=== PATIENT | male | born 1965 | race African-American/Black ===

== ENCOUNTER 2017-08-22 03:12 | Inpatient (IN) ==
[2017-08-22] MEDS ORDERED: NITROGLYCERIN 2% OINT 1 INCH/GM PACK TOP STA (04:10)
[2017-08-22] MEDS ORDERED: ALUM/MAG/SIMETH/LIDO VISC 1:1 30 ML BOTTLE PO STA (04:10)
[2017-08-22] MEDS ORDERED: ONDANSETRON 4 MG/2 ML VIAL IV STA (04:10)
[2017-08-22] MEDS ORDERED: ASPIRIN 325 MG TABLET PO STA (04:10)
[2017-08-22] MEDS ORDERED: MORPHINE 2 MG/1 ML SYRINGE IV STA (04:10)
[2017-08-22] MEDS ORDERED: FUROSEMIDE 40 MG/4 ML VIAL IV STA (04:10)
[2017-08-22] MEDS ORDERED: NITROGLYCERIN 2% OINT 1 INCH/GM PACK TOP ONE (04:25)
[2017-08-22] MEDS ORDERED: ASPIRIN 325 MG TABLET ONE (04:26)
[2017-08-22] MEDS ORDERED: FUROSEMIDE 40 MG/4 ML VIAL ONE (04:26)
[2017-08-22] MEDS ORDERED: ONDANSETRON 4 MG/2 ML VIAL ONE (04:26)
[2017-08-22] MEDS ORDERED: FUROSEMIDE 20 MG/2 ML VIAL ONE (04:26)
[2017-08-22] MEDS ORDERED: ALUM/MAG/SIMETH/LIDO VISC 1:1 30 ML BOTTLE PO ONE (04:26)
[2017-08-22] MEDS ORDERED: MORPHINE 2 MG/1 ML SYRINGE ONE (04:26)
[2017-08-22 04:47] LABS: Basophils % 0.5 % (0.0-0.8); Eosinophils # 0.2 10*3/uL (0.0-0.87); Eosinophils % 2.1 % (0.00-10.9); Hematocrit 43.9 VOL% (42.0-52.0); Hemoglobin 14.3 GM/DL (14.0-18.0); Immature Granulocytes % 0.4 %; Immature Granulocytes Absolute 0.03 #; Lymphocytes # 1.3 10*3/uL (1.4-4.0); Lymphocytes % 16.4 % (21.2-54.2); Mean Corpuscular HGB Conc 32.6 GM/DL (32-36); Mean Corpuscular Hemoglobin 31 PG (27-34); Mean Corpuscular Volume 94.2 FL (87-102); Mean Platelet Volume 11.1 FL (9.6-12.0); Monocytes # 0.8 10*3/uL (0.11-0.8); Monocytes % 9.7 % (1.7-12.7); Neutrophils # 5.6 10*3/uL (1.4-7.4); Neutrophils % 70.9 % (38.7-73.9); Platelet Count 207 T/CUMM (130-400); Red Blood Count 4.66 MC/CUMM (3.8-5.5); Red Cell Distribution Width 13.1 % (9.3-17.3)
[2017-08-22 04:56] LABS: INR 1.1; PT Patient Result 11.1 SECS
[2017-08-22] MEDS ORDERED: NITROGLYCERIN SL 0.4 MG TABLET SL STA (05:54)
[2017-08-22] MEDS ORDERED: DEXTROSE 50% 25 GM/50 ML VIAL IV PRN (05:55)
[2017-08-22] MEDS ORDERED: GLUCAGON 1 MG VIAL IM PRN (05:55)
[2017-08-22] MEDS ORDERED: NITROGLYCERIN SL 0.4 MG TABLET SL ONE (06:24)
[2017-08-22 06:46] LABS: Apearance,Urine CLEAR (Clear); Bilirubin,Urine Negative (Negative); Blood, Urine Negative (Negative); Glucose,Urine (UA) 50 mg/dL (Negative); Hyaline Casts,Urine 8 /LPF (0-3); Ketones,Urine Negative (Negative); Mucus,Urine Occasional /LPF (Occasional); Nitrite,Urine Negative (Negative); Protein,Urine Negative; RBC,Urine <1 /HPF (0-4); Squamous Epithelial Cell,Urine Occasional /HPF (0-10); Urine Color Straw (Yellow); Urine Specific Gravity 1.005 (1.001-1.035); Urine Urobilinogen < 2.0 EU/DL (0.2-1.0); WBC,Urine <1 /HPF (0-6)
[2017-08-22 06:56] LABS: Barbiturates Screen,Urine Negative (Negative); Benzodiazepines Screen,Urine Negative (Negative); Cannabinoid Screen,Urine Negative (Negative); Opiate Screen,Urine Positive (Negative); Phencyclidine Screen,Urine Negative (Negative)
[2017-08-22 07:09] LABS: Albumin 3.6 G/DL (3.4-5.0); Bilirubin,Total 0.6 MG/DL (0.2-1.0); Magnesium 1.7 MG/DL (1.8-2.4); Osmolality,Calculated 296.8 MOS/KG (273-304); Potassium 3.9 MMOL/L (3.5-5.1); Total Protein 6.9 G/DL (6.4-8.3)
[2017-08-22] MEDS ORDERED: ALBUTEROL 2.5 MG/3 ML NEB RESP TX PRN (07:09)
[2017-08-22] MEDS ORDERED: NITROGLYCERIN SL 0.4 MG TABLET SL PRN (07:10)
[2017-08-22 07:26] LABS: Magnesium 1.8 MG/DL (1.8-2.4); Risk Ratio 3.16; Thyroid Stimulating Hormone 3.03 uIU/ml (0.358-3.74); VLDL CHOLESTEROL 24.2 MG/DL
[2017-08-22] MEDS ORDERED: FUROSEMIDE 80 MG TABLET PO SCH (08:00)
[2017-08-22] MEDS ORDERED: COLCHICINE 0.6 MG TABLET PO PRN (09:00)
[2017-08-22] MEDS: INSULIN LISPRO 100 UNIT/ML SUBCUT SCH ×4 (09:02→20:59)
[2017-08-22] MEDS: MONTELUKAST 10 MG TABLET PO SCH ×2 (10:15→21:06)
[2017-08-22] MEDS: GABAPENTIN 100 MG CAPSULE PO SCH ×2 (10:15→21:06)
[2017-08-22] MEDS: PANTOPRAZOLE 40 MG TABLET PO SCH (10:15)
[2017-08-22] MEDS: ASPIRIN EC 81 MG TABLET PO SCH (10:15)
[2017-08-22] MEDS: ATORVASTATIN 40 MG TABLET PO SCH (10:15)
[2017-08-22] MEDS: INSULIN GLARGINE 100 UNIT/ML SUBCUT SCH ×2 (10:16→21:06)
[2017-08-22] MEDS: ALLOPURINOL 300 MG TABLET PO SCH ×2 (10:16→10:20)
[2017-08-22] MEDS: LISINOPRIL 5 MG TABLET PO SCH ×2 (10:16→10:20)
[2017-08-22] MEDS: FUROSEMIDE 40 MG/4 ML VIAL IV SCH (15:14)
[2017-08-22] MEDS: ENOXAPARIN 100 MG/ML SYRINGE SUBCUT SCH (15:19)
[2017-08-22] MEDS ORDERED: MAGNESIUM SULF RIDER 2 GM in PREMIX 1 EACH IV PRN ×2 (17:13→17:31)
[2017-08-22] MEDS ORDERED: POTASSIUM CHLORIDE RIDER 10 MEQ in PREMIX 1 EACH IV PRN ×2 (17:13→17:31)
[2017-08-22] MEDS: METOPROLOL TARTRATE 25 MG TABLET PO SCH (21:06)
[2017-08-22] MEDS: TRIAMTERENE/HCTZ 37.5-25 MG TABLET PO SCH (21:06)
[2017-08-23 00:27] LABS: Apearance,Urine CLEAR (Clear); Bilirubin,Urine Negative (Negative); Blood, Urine Small mg/dL (Negative); Glucose,Urine (UA) 50 mg/dL (Negative); Hyaline Casts,Urine 25 /LPF (0-3); Ketones,Urine Negative (Negative); Mucus,Urine Occasional /LPF (Occasional); Nitrite,Urine Negative (Negative); Protein,Urine 30 MG/DL; RBC,Urine 2 /HPF (0-4); Sperm,Urine Occasional /HPF (Negative); Squamous Epithelial Cell,Urine Occasional /HPF (0-10); Urine Color Yellow (Yellow); WBC,Urine 1 /HPF (0-6)
[2017-08-23] MEDS: ENOXAPARIN 100 MG/ML SYRINGE SUBCUT SCH (01:52)
[2017-08-23] MEDS: SODIUM CHLORIDE 0.45% 1,000 ML IV SCH ×2 (01:52→21:11)
[2017-08-23 04:50] LABS: Basophils % 0.4 % (0.0-0.8); Eosinophils % 0.3 % (0.00-10.9); Hematocrit 41.9 VOL% (42.0-52.0); Hemoglobin 13.6 GM/DL (14.0-18.0); Immature Granulocytes % 0.4 %; Immature Granulocytes Absolute 0.04 #; Lymphocytes # 1.4 10*3/uL (1.4-4.0); Lymphocytes % 14.5 % (21.2-54.2); Mean Corpuscular HGB Conc 32.5 GM/DL (32-36); Mean Corpuscular Hemoglobin 31 PG (27-34); Mean Corpuscular Volume 94.6 FL (87-102); Mean Platelet Volume 11.8 FL (9.6-12.0); Monocytes # 0.6 10*3/uL (0.11-0.8); Monocytes % 6.7 % (1.7-12.7); Neutrophils # 7.4 10*3/uL (1.4-7.4); Neutrophils % 77.7 % (38.7-73.9); Platelet Count 208 T/CUMM (130-400); Red Blood Count 4.43 MC/CUMM (3.8-5.5); Red Cell Distribution Width 13.2 % (9.3-17.3); White Blood Count 9.5 T/CUMM (4-12)
[2017-08-23 05:17] LABS: Calcium 8.8 MG/DL (8.5-10.1); Osmolality,Calculated 287.8 MOS/KG (273-304)
[2017-08-23] MEDS ORDERED: LIDOCAINE 1% 20 ML VIAL ONE (06:23)
[2017-08-23] MEDS ORDERED: HEPARIN/NACL 0.9% 2 UNITS/ML 2,000 ML IV ONE (06:23)
[2017-08-23] MEDS ORDERED: diphenhydrAMINE CAP 25 MG CAPSULE PO ONE (06:30)
[2017-08-23] MEDS ORDERED: DIAZEPAM 5 MG TABLET PO ONE (06:30)
[2017-08-23] MEDS ORDERED: MIDAZOLAM 2 MG/2 ML VIAL ONE (07:09)
[2017-08-23] MEDS ORDERED: HYDROmorphone 2 MG/1 ML VIAL ONE (07:09)
[2017-08-23] MEDS ORDERED: BIVALIRUDIN 250 MG VIAL IV ONE (07:49)
[2017-08-23] MEDS ORDERED: BIVALIRUDIN 250 MG in SODIUM CHLORIDE 0.9% 50 ML IV SCH (08:03)
[2017-08-23] MEDS ORDERED: TICAGRELOR 90 MG TABLET ONE (08:10)
[2017-08-23] MEDS ORDERED: GLUCAGON 1 MG VIAL IM PRN (08:15)
[2017-08-23] MEDS ORDERED: DEXTROSE 50% 25 GM/50 ML VIAL IV PRN (08:15)
[2017-08-23] MEDS: INSULIN LISPRO 100 UNIT/ML SUBCUT SCH ×4 (08:30→21:14)
[2017-08-23] MEDS ORDERED: LISINOPRIL 5 MG TABLET PO SCH (09:00)
[2017-08-23] MEDS: INSULIN GLARGINE 100 UNIT/ML SUBCUT SCH ×2 (10:26→21:14)
[2017-08-23] MEDS: FUROSEMIDE 40 MG/4 ML VIAL IV SCH ×2 (10:26→17:29)
[2017-08-23] MEDS: GABAPENTIN 100 MG CAPSULE PO SCH ×2 (12:51→21:14)
[2017-08-23] MEDS: ATORVASTATIN 40 MG TABLET PO SCH (12:51)
[2017-08-23] MEDS: ALLOPURINOL 300 MG TABLET PO SCH (12:51)
[2017-08-23] MEDS: MONTELUKAST 10 MG TABLET PO SCH ×2 (12:51→21:13)
[2017-08-23] MEDS: PANTOPRAZOLE 40 MG TABLET PO SCH (12:51)
[2017-08-23] MEDS: ASPIRIN EC 81 MG TABLET PO SCH (12:52)
[2017-08-23] MEDS: METOPROLOL TARTRATE 25 MG TABLET PO SCH ×2 (12:52→21:14)
[2017-08-23] MEDS: TICAGRELOR 90 MG TABLET PO SCH ×2 (12:56→21:14)
[2017-08-23] MEDS: TRIAMTERENE/HCTZ 37.5-25 MG TABLET PO SCH (21:14)
[2017-08-24] MEDS: SODIUM CHLORIDE 0.45% 1,000 ML IV SCH ×2 (01:21→12:17)
[2017-08-24 04:45] LABS: Basophils % 0.3 % (0.0-0.8); Eosinophils % 0.1 % (0.00-10.9); Hematocrit 41.4 VOL% (42.0-52.0); Hemoglobin 13.2 GM/DL (14.0-18.0); Immature Granulocytes % 0.4 %; Immature Granulocytes Absolute 0.05 #; Lymphocytes # 1.2 10*3/uL (1.4-4.0); Lymphocytes % 10.2 % (21.2-54.2); Mean Corpuscular HGB Conc 31.9 GM/DL (32-36); Mean Corpuscular Hemoglobin 30 PG (27-34); Mean Corpuscular Volume 94.7 FL (87-102); Mean Platelet Volume 11.5 FL (9.6-12.0); Monocytes # 1.1 10*3/uL (0.11-0.8); Monocytes % 9.6 % (1.7-12.7); Neutrophils # 9.2 10*3/uL (1.4-7.4); Neutrophils % 79.4 % (38.7-73.9); Platelet Count 206 T/CUMM (130-400); Red Blood Count 4.37 MC/CUMM (3.8-5.5); Red Cell Distribution Width 13.1 % (9.3-17.3); White Blood Count 11.6 T/CUMM (4-12)
[2017-08-24 05:35] LABS: Calcium 8.8 MG/DL (8.5-10.1)
[2017-08-24 05:36] LABS: CKMB % 3.2 %; Osmolality,Calculated 281.4 MOS/KG (273-304); Potassium 4.1 MMOL/L (3.5-5.1); Troponin I Only 0.055 NG/ML (0.00-0.045)
[2017-08-24] MEDS: INSULIN GLARGINE 100 UNIT/ML SUBCUT SCH ×2 (09:10→21:29)
[2017-08-24] MEDS: FUROSEMIDE 40 MG/4 ML VIAL IV SCH ×2 (09:10→16:24)
[2017-08-24] MEDS: POLYETHYLENE GLYCOL POWDER 17 GM PACK PO PRN (09:10)
[2017-08-24] MEDS: TICAGRELOR 90 MG TABLET PO SCH ×2 (09:11→21:29)
[2017-08-24] MEDS: ATORVASTATIN 40 MG TABLET PO SCH (09:11)
[2017-08-24] MEDS: METOPROLOL TARTRATE 25 MG TABLET PO SCH ×2 (09:11→21:29)
[2017-08-24] MEDS: PANTOPRAZOLE 40 MG TABLET PO SCH (09:11)
[2017-08-24] MEDS: GABAPENTIN 100 MG CAPSULE PO SCH ×2 (09:11→21:28)
[2017-08-24] MEDS: INSULIN LISPRO 100 UNIT/ML SUBCUT SCH ×4 (09:11→21:29)
[2017-08-24] MEDS: MONTELUKAST 10 MG TABLET PO SCH ×2 (09:11→21:29)
[2017-08-24] MEDS: ASPIRIN EC 81 MG TABLET PO SCH (09:12)
[2017-08-24] MEDS: ALLOPURINOL 300 MG TABLET PO SCH (09:12)
[2017-08-24] MEDS: TRIAMTERENE/HCTZ 37.5-25 MG TABLET PO SCH (21:29)
[2017-08-25 05:36] LABS: Calcium 8.7 MG/DL (8.5-10.1); Osmolality,Calculated 282.2 MOS/KG (273-304); Potassium 3.6 MMOL/L (3.5-5.1)
[2017-08-25] MEDS: SODIUM CHLORIDE 0.9% 1,000 ML IV SCH ×3 (07:37→23:00)
[2017-08-25] MEDS: INSULIN LISPRO 100 UNIT/ML SUBCUT SCH ×4 (08:11→21:10)
[2017-08-25] MEDS: METOPROLOL TARTRATE 25 MG TABLET PO SCH ×2 (08:41→21:11)
[2017-08-25] MEDS: ATORVASTATIN 40 MG TABLET PO SCH ×2 (08:41→21:08)
[2017-08-25] MEDS: GABAPENTIN 100 MG CAPSULE PO SCH ×2 (08:41→21:08)
[2017-08-25] MEDS: TICAGRELOR 90 MG TABLET PO SCH ×2 (08:42→21:08)
[2017-08-25] MEDS: MONTELUKAST 10 MG TABLET PO SCH ×2 (08:42→21:08)
[2017-08-25] MEDS: PANTOPRAZOLE 40 MG TABLET PO SCH (08:42)
[2017-08-25] MEDS: ASPIRIN EC 81 MG TABLET PO SCH (08:42)
[2017-08-25] MEDS: INSULIN GLARGINE 100 UNIT/ML SUBCUT SCH ×2 (08:43→21:10)
[2017-08-25] MEDS ORDERED: ALLOPURINOL 100 MG TABLET PO SCH ×2 (09:00→21:00)
[2017-08-26 02:34] LABS: Basophils % 0.3 % (0.0-0.8); Eosinophils % 0.2 % (0.00-10.9); Hematocrit 38.7 VOL% (42.0-52.0); Hemoglobin 12.8 GM/DL (14.0-18.0); Immature Granulocytes % 0.6 %; Immature Granulocytes Absolute 0.06 #; Lymphocytes # 1.2 10*3/uL (1.4-4.0); Lymphocytes % 11.4 % (21.2-54.2); Mean Corpuscular HGB Conc 33.1 GM/DL (32-36); Mean Corpuscular Hemoglobin 31 PG (27-34); Mean Corpuscular Volume 92.1 FL (87-102); Mean Platelet Volume 11.2 FL (9.6-12.0); Monocytes # 1.2 10*3/uL (0.11-0.8); Neutrophils % 76.5 % (38.7-73.9); Platelet Count 191 T/CUMM (130-400); Red Cell Distribution Width 13.3 % (9.3-17.3); White Blood Count 10.4 T/CUMM (4-12)
[2017-08-26 03:01] LABS: Osmolality,Calculated 290.4 MOS/KG (273-304); Potassium 3.8 MMOL/L (3.5-5.1)
[2017-08-26] MEDS: SODIUM CHLORIDE 0.9% 1,000 ML IV SCH ×3 (05:16→18:31)
[2017-08-26] MEDS: INSULIN LISPRO 100 UNIT/ML SUBCUT SCH ×4 (08:23→21:48)
[2017-08-26] MEDS: PANTOPRAZOLE 40 MG TABLET PO SCH (08:24)
[2017-08-26] MEDS: MONTELUKAST 10 MG TABLET PO SCH ×2 (08:24→21:46)
[2017-08-26] MEDS: METOPROLOL TARTRATE 25 MG TABLET PO SCH ×2 (08:24→21:48)
[2017-08-26] MEDS: INSULIN GLARGINE 100 UNIT/ML SUBCUT SCH ×2 (08:25→21:46)
[2017-08-26] MEDS: ASPIRIN EC 81 MG TABLET PO SCH (13:04)
[2017-08-26] MEDS: TICAGRELOR 90 MG TABLET PO SCH ×2 (13:04→21:46)
[2017-08-26 15:15] LABS: Hepatitis A Ab IgM Quant 0.07 Index; Hepatitis A Ab IgM Result Negative (Negative); Hepatitis B Core IgM Quant 0.09 Index; Hepatitis B Core IgM Result Negative (Negative); Hepatitis B Surface Ag Quant < 0.10 Index; Hepatitis B Surface Ag Result Negative (Negative); Hepatitis C Virus Ab Quant 0.15 Index; Hepatitis C Virus Ab Result Negative (Negative)
[2017-08-26] MEDS: miSOPROStol 200 MCG TABLET PO SCH ×2 (16:42→21:48)
[2017-08-26] MEDS: ONDANSETRON 4 MG/2 ML VIAL IV PRN (18:32)
[2017-08-26] MEDS: GABAPENTIN 100 MG CAPSULE PO SCH (21:46)
[2017-08-26] MEDS: ATORVASTATIN 40 MG TABLET PO SCH (21:46)
[2017-08-27] MEDS: SODIUM CHLORIDE 0.9% 1,000 ML IV SCH ×5 (03:38→21:42)
[2017-08-27] MEDS: INSULIN LISPRO 100 UNIT/ML SUBCUT SCH ×4 (08:46→21:43)
[2017-08-27] MEDS: TICAGRELOR 90 MG TABLET PO SCH ×2 (08:48→21:43)
[2017-08-27] MEDS: PANTOPRAZOLE 40 MG TABLET PO SCH (08:48)
[2017-08-27] MEDS: INSULIN GLARGINE 100 UNIT/ML SUBCUT SCH ×2 (08:48→21:43)
[2017-08-27] MEDS: METOPROLOL TARTRATE 25 MG TABLET PO SCH ×2 (08:48→21:44)
[2017-08-27] MEDS: ASPIRIN EC 81 MG TABLET PO SCH (08:48)
[2017-08-27] MEDS: MONTELUKAST 10 MG TABLET PO SCH ×2 (08:49→21:43)
[2017-08-27] MEDS: miSOPROStol 200 MCG TABLET PO SCH ×2 (08:49→11:50)
[2017-08-27 09:25] LABS: Basophils % 0.3 % (0.0-0.8); Eosinophils % 0.2 % (0.00-10.9); Hematocrit 40.8 VOL% (42.0-52.0); Hemoglobin 13.6 GM/DL (14.0-18.0); Immature Granulocytes % 0.4 %; Immature Granulocytes Absolute 0.04 #; Lymphocytes # 0.7 10*3/uL (1.4-4.0); Lymphocytes % 7.5 % (21.2-54.2); Mean Corpuscular HGB Conc 33.3 GM/DL (32-36); Mean Corpuscular Hemoglobin 31 PG (27-34); Mean Corpuscular Volume 92.9 FL (87-102); Mean Platelet Volume 10.7 FL (9.6-12.0); Monocytes # 0.9 10*3/uL (0.11-0.8); Neutrophils # 7.4 10*3/uL (1.4-7.4); Neutrophils % 81.6 % (38.7-73.9); Platelet Count 192 T/CUMM (130-400); Red Blood Count 4.39 MC/CUMM (3.8-5.5); Red Cell Distribution Width 13.4 % (9.3-17.3)
[2017-08-27 10:01] LABS: Magnesium 1.9 MG/DL (1.8-2.4); Osmolality,Calculated 290.2 MOS/KG (273-304); Potassium 3.8 MMOL/L (3.5-5.1)
[2017-08-27] MEDS: ONDANSETRON 4 MG/2 ML VIAL IV PRN (10:03)
[2017-08-27] MEDS: ISOSORBIDE MONONITRATE 30 MG TABLET PO SCH (13:06)
[2017-08-27] MEDS: ATORVASTATIN 40 MG TABLET PO SCH (21:43)
[2017-08-27] MEDS: GABAPENTIN 100 MG CAPSULE PO SCH (21:43)
[2017-08-28 05:58] LABS: Basophils % 0.3 % (0.0-0.8); Eosinophils % 0.1 % (0.00-10.9); Hematocrit 38.4 VOL% (42.0-52.0); Hemoglobin 12.3 GM/DL (14.0-18.0); Immature Granulocytes % 0.4 %; Immature Granulocytes Absolute 0.04 #; Lymphocytes # 0.9 10*3/uL (1.4-4.0); Lymphocytes % 9.3 % (21.2-54.2); Mean Corpuscular Hemoglobin 30 PG (27-34); Mean Corpuscular Volume 94.1 FL (87-102); Mean Platelet Volume 10.9 FL (9.6-12.0); Monocytes # 0.9 10*3/uL (0.11-0.8); Monocytes % 9.6 % (1.7-12.7); Neutrophils # 7.8 10*3/uL (1.4-7.4); Neutrophils % 80.3 % (38.7-73.9); Platelet Count 195 T/CUMM (130-400); Red Blood Count 4.08 MC/CUMM (3.8-5.5); Red Cell Distribution Width 13.3 % (9.3-17.3); White Blood Count 9.8 T/CUMM (4-12)
[2017-08-28 06:26] LABS: Calcium 8.4 MG/DL (8.5-10.1); Osmolality,Calculated 287.8 MOS/KG (273-304); Potassium 3.7 MMOL/L (3.5-5.1)
[2017-08-28] MEDS: INSULIN LISPRO 100 UNIT/ML SUBCUT SCH ×4 (09:15→22:49)
[2017-08-28] MEDS: METOPROLOL TARTRATE 25 MG TABLET PO SCH ×2 (09:41→21:42)
[2017-08-28] MEDS: TICAGRELOR 90 MG TABLET PO SCH ×2 (09:42→21:42)
[2017-08-28] MEDS: ASPIRIN EC 81 MG TABLET PO SCH (09:42)
[2017-08-28] MEDS: PANTOPRAZOLE 40 MG TABLET PO SCH ×2 (09:43→21:43)
[2017-08-28] MEDS: INSULIN GLARGINE 100 UNIT/ML SUBCUT SCH ×2 (09:43→21:35)
[2017-08-28] MEDS: MONTELUKAST 10 MG TABLET PO SCH ×2 (09:43→21:42)
[2017-08-28] MEDS: ISOSORBIDE MONONITRATE 30 MG TABLET PO SCH ×2 (09:44→16:14)
[2017-08-28 14:14] LABS: DRVVT Screen Ratio 0.9 ratio (0.0 - 1.1); INR 1.2
[2017-08-28 14:52] LABS: Myeloperoxidase Antibody < 0.2 U
[2017-08-28] MEDS: ATORVASTATIN 40 MG TABLET PO SCH (21:41)
[2017-08-28] MEDS: GABAPENTIN 100 MG CAPSULE PO SCH (21:42)
[2017-08-29 03:34] LABS: Basophils % 0.3 % (0.0-0.8); Eosinophils % 0.1 % (0.00-10.9); Hematocrit 41.7 VOL% (42.0-52.0); Immature Granulocytes % 0.5 %; Immature Granulocytes Absolute 0.05 #; Lymphocytes # 1.1 10*3/uL (1.4-4.0); Lymphocytes % 11.2 % (21.2-54.2); Mean Corpuscular HGB Conc 31.2 GM/DL (32-36); Mean Corpuscular Hemoglobin 30 PG (27-34); Mean Corpuscular Volume 96.3 FL (87-102); Mean Platelet Volume 11.1 FL (9.6-12.0); Monocytes % 10.9 % (1.7-12.7); NRBC # 0.05 10*3/uL; Neutrophils # 7.2 10*3/uL (1.4-7.4); Platelet Count 219 T/CUMM (130-400); Red Blood Count 4.33 MC/CUMM (3.8-5.5); Red Cell Distribution Width 13.4 % (9.3-17.3); White Blood Count 9.4 T/CUMM (4-12)
[2017-08-29 04:01] LABS: Calcium 8.4 MG/DL (8.5-10.1); Magnesium 1.9 MG/DL (1.8-2.4); Osmolality,Calculated 291.8 MOS/KG (273-304); Potassium 3.9 MMOL/L (3.5-5.1)
[2017-08-29] MEDS: MONTELUKAST 10 MG TABLET PO SCH ×2 (10:30→21:31)
[2017-08-29] MEDS: METOPROLOL TARTRATE 25 MG TABLET PO SCH ×2 (10:30→21:31)
[2017-08-29] MEDS: ISOSORBIDE MONONITRATE 30 MG TABLET PO SCH (10:30)
[2017-08-29] MEDS: ASPIRIN EC 81 MG TABLET PO SCH (10:31)
[2017-08-29] MEDS: TICAGRELOR 90 MG TABLET PO SCH ×2 (10:31→21:31)
[2017-08-29] MEDS: INSULIN GLARGINE 100 UNIT/ML SUBCUT SCH ×2 (10:34→21:39)
[2017-08-29] MEDS: PANTOPRAZOLE 40 MG TABLET PO SCH ×2 (10:37→21:41)
[2017-08-29] MEDS: INSULIN LISPRO 100 UNIT/ML SUBCUT SCH ×4 (10:41→21:39)
[2017-08-29] MEDS ORDERED: FUROSEMIDE INJ 160 MG in SODIUM CHLORIDE 0.9% 50 ML IV ONE ×2 (12:30→19:00)
[2017-08-29] MEDS: GABAPENTIN 100 MG CAPSULE PO SCH (21:31)
[2017-08-29] MEDS: ATORVASTATIN 40 MG TABLET PO SCH (21:31)
[2017-08-29] MEDS: CETIRIZINE 5 MG TABLET PO SCH (21:31)
[2017-08-29] MEDS: PSEUDOEPHEDRINE 30 MG TABLET PO SCH (21:47)
[2017-08-30 05:09] LABS: Basophils % 0.3 % (0.0-0.8); Eosinophils % 0.2 % (0.00-10.9); Hematocrit 40.6 VOL% (42.0-52.0); Hemoglobin 13.3 GM/DL (14.0-18.0); Immature Granulocytes % 0.6 %; Immature Granulocytes Absolute 0.06 #; Lymphocytes # 1.3 10*3/uL (1.4-4.0); Lymphocytes % 12.5 % (21.2-54.2); Mean Corpuscular HGB Conc 32.8 GM/DL (32-36); Mean Corpuscular Hemoglobin 30 PG (27-34); Mean Corpuscular Volume 92.5 FL (87-102); Mean Platelet Volume 10.5 FL (9.6-12.0); Monocytes # 1.1 10*3/uL (0.11-0.8); Monocytes % 11.2 % (1.7-12.7); NRBC # 0.06 10*3/uL; Neutrophils # 7.7 10*3/uL (1.4-7.4); Neutrophils % 75.2 % (38.7-73.9); Platelet Count 225 T/CUMM (130-400); Red Blood Count 4.39 MC/CUMM (3.8-5.5); Red Cell Distribution Width 13.4 % (9.3-17.3); White Blood Count 10.2 T/CUMM (4-12)
[2017-08-30 05:46] LABS: Calcium 8.2 MG/DL (8.5-10.1); Magnesium 1.5 MG/DL (1.8-2.4); Osmolality,Calculated 289.5 MOS/KG (273-304); Potassium 3.1 MMOL/L (3.5-5.1)
[2017-08-30] MEDS: INSULIN LISPRO 100 UNIT/ML SUBCUT SCH ×4 (08:47→20:52)
[2017-08-30] MEDS: TICAGRELOR 90 MG TABLET PO SCH ×2 (08:48→20:51)
[2017-08-30] MEDS: ISOSORBIDE MONONITRATE 30 MG TABLET PO SCH (08:48)
[2017-08-30] MEDS: MONTELUKAST 10 MG TABLET PO SCH ×2 (08:48→20:51)
[2017-08-30] MEDS: METOPROLOL TARTRATE 25 MG TABLET PO SCH ×2 (08:48→20:52)
[2017-08-30] MEDS: CETIRIZINE 5 MG TABLET PO SCH ×2 (08:48→20:51)
[2017-08-30] MEDS: PANTOPRAZOLE 40 MG TABLET PO SCH ×2 (08:49→20:51)
[2017-08-30] MEDS: ASPIRIN EC 81 MG TABLET PO SCH (08:49)
[2017-08-30] MEDS: INSULIN GLARGINE 100 UNIT/ML SUBCUT SCH ×2 (09:42→20:51)
[2017-08-30] MEDS: PSEUDOEPHEDRINE 30 MG TABLET PO SCH ×2 (09:43→20:51)
[2017-08-30] MEDS: FUROSEMIDE 40 MG/4 ML VIAL IV SCH ×2 (09:58→16:05)
[2017-08-30] MEDS: POTASSIUM CHLORIDE 20 MEQ TABLET PO SCH ×2 (09:58→20:51)
[2017-08-30] MEDS: GABAPENTIN 100 MG CAPSULE PO SCH (20:52)
[2017-08-30] MEDS: ATORVASTATIN 40 MG TABLET PO SCH (20:53)
[2017-08-31] MEDS ORDERED: COLCHICINE 0.6 MG TABLET PO PRN (04:08)
[2017-08-31 05:11] LABS: Basophils % 0.3 % (0.0-0.8); Eosinophils % 0.4 % (0.00-10.9); Hematocrit 39.6 VOL% (42.0-52.0); Hemoglobin 12.9 GM/DL (14.0-18.0); Immature Granulocytes % 0.5 %; Immature Granulocytes Absolute 0.05 #; Lymphocytes # 1.3 10*3/uL (1.4-4.0); Lymphocytes % 12.9 % (21.2-54.2); Mean Corpuscular HGB Conc 32.6 GM/DL (32-36); Mean Corpuscular Hemoglobin 30 PG (27-34); Mean Corpuscular Volume 93.2 FL (87-102); Mean Platelet Volume 10.6 FL (9.6-12.0); Monocytes # 1.1 10*3/uL (0.11-0.8); Monocytes % 11.2 % (1.7-12.7); NRBC # 0.03 10*3/uL; Neutrophils # 7.5 10*3/uL (1.4-7.4); Neutrophils % 74.7 % (38.7-73.9); Platelet Count 221 T/CUMM (130-400); Red Blood Count 4.25 MC/CUMM (3.8-5.5); Red Cell Distribution Width 13.4 % (9.3-17.3); White Blood Count 10.1 T/CUMM (4-12)
[2017-08-31 05:35] LABS: Calcium 8.3 MG/DL (8.5-10.1); Magnesium 1.5 MG/DL (1.8-2.4); Osmolality,Calculated 286.4 MOS/KG (273-304); Potassium 3.1 MMOL/L (3.5-5.1)
[2017-08-31] MEDS ORDERED: DICLOFENAC 1% GEL 100 GM TUBE TOP SCH (09:00)
[2017-08-31] MEDS: INSULIN LISPRO 100 UNIT/ML SUBCUT SCH ×4 (09:06→21:23)
[2017-08-31] MEDS: PSEUDOEPHEDRINE 30 MG TABLET PO SCH ×2 (09:16→21:21)
[2017-08-31] MEDS: POTASSIUM CHLORIDE 20 MEQ TABLET PO SCH ×2 (09:17→21:22)
[2017-08-31] MEDS: CETIRIZINE 5 MG TABLET PO SCH ×2 (09:17→21:21)
[2017-08-31] MEDS: TICAGRELOR 90 MG TABLET PO SCH ×2 (09:17→21:22)
[2017-08-31] MEDS: PANTOPRAZOLE 40 MG TABLET PO SCH ×2 (09:18→21:22)
[2017-08-31] MEDS: METOPROLOL TARTRATE 25 MG TABLET PO SCH ×2 (09:18→21:22)
[2017-08-31] MEDS: ASPIRIN EC 81 MG TABLET PO SCH (09:18)
[2017-08-31] MEDS: FUROSEMIDE 80 MG TABLET PO SCH ×2 (09:18→15:39)
[2017-08-31] MEDS: ISOSORBIDE MONONITRATE 30 MG TABLET PO SCH (09:19)
[2017-08-31] MEDS: INSULIN GLARGINE 100 UNIT/ML SUBCUT SCH ×2 (09:19→21:24)
[2017-08-31] MEDS: MONTELUKAST 10 MG TABLET PO SCH ×2 (09:31→21:21)
[2017-08-31] MEDS: ALLOPURINOL 100 MG TABLET PO SCH (10:44)
[2017-08-31] MEDS: methylPREDNISolone SOD SUC 40 MG/1 ML VIAL IV SCH (10:45)
[2017-08-31] MEDS: ATORVASTATIN 40 MG TABLET PO SCH (21:22)
[2017-08-31] MEDS: GABAPENTIN 100 MG CAPSULE PO SCH (21:22)
[2017-09-01 04:56] LABS: Basophils % 0.1 % (0.0-0.8); Hematocrit 39.9 VOL% (42.0-52.0); Hemoglobin 12.9 GM/DL (14.0-18.0); Immature Granulocytes % 0.3 %; Immature Granulocytes Absolute 0.04 #; Lymphocytes # 0.6 10*3/uL (1.4-4.0); Lymphocytes % 5.3 % (21.2-54.2); Mean Corpuscular HGB Conc 32.3 GM/DL (32-36); Mean Corpuscular Hemoglobin 30 PG (27-34); Mean Platelet Volume 10.3 FL (9.6-12.0); Monocytes # 0.8 10*3/uL (0.11-0.8); Monocytes % 6.2 % (1.7-12.7); NRBC # 0.05 10*3/uL; Neutrophils # 10.6 10*3/uL (1.4-7.4); Neutrophils % 88.1 % (38.7-73.9); Platelet Count 212 T/CUMM (130-400); Red Blood Count 4.29 MC/CUMM (3.8-5.5); Red Cell Distribution Width 13.6 % (9.3-17.3); White Blood Count 12.1 T/CUMM (4-12)
[2017-09-01 05:28] LABS: Calcium 8.3 MG/DL (8.5-10.1); Magnesium 1.6 MG/DL (1.8-2.4); Osmolality,Calculated 290.8 MOS/KG (273-304)
[2017-09-01] MEDS: PANTOPRAZOLE 40 MG TABLET PO SCH ×2 (09:19→20:58)
[2017-09-01] MEDS: INSULIN LISPRO 100 UNIT/ML SUBCUT SCH ×4 (09:19→20:57)
[2017-09-01] MEDS: ALLOPURINOL 100 MG TABLET PO SCH (09:19)
[2017-09-01] MEDS: METOPROLOL TARTRATE 25 MG TABLET PO SCH ×3 (09:19→20:58)
[2017-09-01] MEDS: ASPIRIN EC 81 MG TABLET PO SCH (09:19)
[2017-09-01] MEDS: TICAGRELOR 90 MG TABLET PO SCH ×2 (09:20→20:58)
[2017-09-01] MEDS: PSEUDOEPHEDRINE 30 MG TABLET PO SCH ×2 (09:20→20:58)
[2017-09-01] MEDS: ISOSORBIDE MONONITRATE 30 MG TABLET PO SCH (09:20)
[2017-09-01] MEDS: MONTELUKAST 10 MG TABLET PO SCH ×2 (09:20→20:57)
[2017-09-01] MEDS: CETIRIZINE 5 MG TABLET PO SCH ×2 (09:20→20:57)
[2017-09-01] MEDS: methylPREDNISolone SOD SUC 40 MG/1 ML VIAL IV SCH (09:21)
[2017-09-01] MEDS: INSULIN GLARGINE 100 UNIT/ML SUBCUT SCH ×2 (09:21→20:57)
[2017-09-01] MEDS: FUROSEMIDE 80 MG TABLET PO SCH ×2 (09:26→16:29)
[2017-09-01] MEDS: POTASSIUM CHLORIDE 20 MEQ TABLET PO SCH ×2 (09:26→20:57)
[2017-09-01] MEDS: POLYETHYLENE GLYCOL POWDER 17 GM PACK PO PRN (09:38)
[2017-09-01] MEDS ORDERED: FUROSEMIDE 40 MG/4 ML VIAL IV ONE (10:52)
[2017-09-01] MEDS ORDERED: ALLOPURINOL 300 MG TABLET PO SCH (13:26)
[2017-09-01] MEDS: ATORVASTATIN 40 MG TABLET PO SCH (20:57)
[2017-09-01] MEDS: GABAPENTIN 100 MG CAPSULE PO SCH (20:58)
[2017-09-02 05:18] LABS: Basophils % 0.1 % (0.0-0.8); Hemoglobin 13.3 GM/DL (14.0-18.0); Immature Granulocytes % 1.8 %; Immature Granulocytes Absolute 0.29 #; Lymphocytes # 0.8 10*3/uL (1.4-4.0); Lymphocytes % 5.2 % (21.2-54.2); Mean Corpuscular HGB Conc 33.3 GM/DL (32-36); Mean Corpuscular Hemoglobin 31 PG (27-34); Mean Corpuscular Volume 92.4 FL (87-102); Mean Platelet Volume 10.4 FL (9.6-12.0); Monocytes # 1.2 10*3/uL (0.11-0.8); Monocytes % 7.2 % (1.7-12.7); NRBC # 0.06 10*3/uL; Neutrophils # 13.6 10*3/uL (1.4-7.4); Neutrophils % 85.7 % (38.7-73.9); Platelet Count 230 T/CUMM (130-400); Red Blood Count 4.33 MC/CUMM (3.8-5.5); Red Cell Distribution Width 13.6 % (9.3-17.3); White Blood Count 15.9 T/CUMM (4-12)
[2017-09-02 05:46] LABS: Calcium 8.5 MG/DL (8.5-10.1); Magnesium 1.7 MG/DL (1.8-2.4); Osmolality,Calculated 295.7 MOS/KG (273-304); Potassium 4.2 MMOL/L (3.5-5.1)
[2017-09-02 05:48] LABS: Calcium 8.5 MG/DL (8.5-10.1); Osmolality,Calculated 293.8 MOS/KG (273-304); Potassium 4.1 MMOL/L (3.5-5.1)
[2017-09-02] MEDS: PSEUDOEPHEDRINE 30 MG TABLET PO SCH (09:02)
[2017-09-02] MEDS: ISOSORBIDE MONONITRATE 30 MG TABLET PO SCH (09:03)
[2017-09-02] MEDS: MONTELUKAST 10 MG TABLET PO SCH (09:04)
[2017-09-02] MEDS: ASPIRIN EC 81 MG TABLET PO SCH (09:05)
[2017-09-02] MEDS: FUROSEMIDE 80 MG TABLET PO SCH (09:05)
[2017-09-02] MEDS: CETIRIZINE 5 MG TABLET PO SCH (09:05)
[2017-09-02] MEDS: METOPROLOL TARTRATE 25 MG TABLET PO SCH (09:06)
[2017-09-02] MEDS: TICAGRELOR 90 MG TABLET PO SCH (09:06)
[2017-09-02] MEDS: INSULIN LISPRO 100 UNIT/ML SUBCUT SCH ×2 (09:07→13:51)
[2017-09-02] MEDS: INSULIN GLARGINE 100 UNIT/ML SUBCUT SCH (09:07)
[2017-09-02] MEDS: PANTOPRAZOLE 40 MG TABLET PO SCH (09:15)
[2017-09-02] MEDS: POTASSIUM CHLORIDE 20 MEQ TABLET PO SCH (09:15)
[2017-09-02 12:48] VITALS: BP 106/65
== END 2017-09-02 14:09 | disposition home or self-care (01) | DRG 246 ==
LOC: N.EDINP 03:12 → N.ED 03:12 → N.TELEN 08:15 → SUATTDRO 08-23 08:24
PROVIDERS: ADMIT Internal Medicine Cardiovascular Disease; ATTEND Hospitalist

== ENCOUNTER 2017-09-08 21:20 | Inpatient (IN) ==
[2017-09-08] MEDS ORDERED: ASPIRIN 325 MG TABLET PO STA (21:49)
[2017-09-08] MEDS ORDERED: ASPIRIN 325 MG TABLET ONE (21:53)
[2017-09-08 22:01] LABS: Basophils % 0.2 % (0.0-0.8); Eosinophils % 0.1 % (0.00-10.9); Hematocrit 47.2 VOL% (42.0-52.0); Hemoglobin 14.9 GM/DL (14.0-18.0); Immature Granulocytes % 0.9 %; Immature Granulocytes Absolute 0.11 #; Mean Corpuscular HGB Conc 31.6 GM/DL (32-36); Mean Corpuscular Hemoglobin 29 PG (27-34); Mean Corpuscular Volume 92.9 FL (87-102); Monocytes # 0.8 10*3/uL (0.11-0.8); Monocytes % 5.8 % (1.7-12.7); Platelet Count 260 T/CUMM (130-400); Red Blood Count 5.08 MC/CUMM (3.8-5.5); Red Cell Distribution Width 14.1 % (9.3-17.3); White Blood Count 12.9 T/CUMM (4-12)
[2017-09-08] MEDS ORDERED: ASPIRIN CHEW 81 MG TABLET PO STA (22:04)
[2017-09-08] MEDS ORDERED: NITROGLYCERIN 2% OINT 1 INCH/GM PACK TOP STA (22:04)
[2017-09-08 22:12] LABS: INR 1.2; PT Patient Result 12.6 SECS; Partial Thromboplastin Time 26.6 SECS (0-40)
[2017-09-08] MEDS ORDERED: NITROGLYCERIN 2% OINT 1 INCH/GM PACK TOP ONE (22:19)
[2017-09-08 22:22] LABS: Albumin 3.2 G/DL (3.4-5.0); Bilirubin,Total 1.1 MG/DL (0.2-1.0); Calcium 8.7 MG/DL (8.5-10.1); Osmolality,Calculated 292.3 MOS/KG (273-304); Potassium 3.5 MMOL/L (3.5-5.1); Total Protein 7.1 G/DL (6.4-8.3)
[2017-09-08] MEDS ORDERED: FUROSEMIDE 40 MG/4 ML VIAL IV STA (23:16)
[2017-09-08 23:25] LABS: Apearance,Urine Clear (Clear); Urine Color Amber (Yellow)
[2017-09-08 23:26] LABS: Bilirubin,Urine Negative (Negative); Glucose,Urine (UA) 50 mg/dL (Negative); Ketones,Urine Negative (Negative); Nitrite,Urine Negative (Negative); Protein,Urine 100 MG/DL
[2017-09-08 23:30] LABS: Blood, Urine Negative (Negative); Urine Urobilinogen < 2.0 EU/DL (0.2-1.0)
[2017-09-08] MEDS ORDERED: FUROSEMIDE 40 MG/4 ML VIAL ONE (23:34)
[2017-09-09] MEDS ORDERED: ACETAMINOPHEN 325 MG TABLET PO PRN (01:29)
[2017-09-09] MEDS ORDERED: GLUCAGON 1 MG VIAL IM PRN (01:29)
[2017-09-09] MEDS ORDERED: ZALEPLON 5 MG CAPSULE PO PRN (01:29)
[2017-09-09] MEDS ORDERED: ONDANSETRON 4 MG/2 ML VIAL IV PRN (01:29)
[2017-09-09] MEDS ORDERED: DEXTROSE 50% 25 GM/50 ML VIAL IV PRN (01:29)
[2017-09-09] MEDS ORDERED: MAGNESIUM SULF RIDER 4 GM in PREMIX 1 EACH IV PRN (01:29)
[2017-09-09 06:42] LABS: Basophils % 0.2 % (0.0-0.8); Eosinophils % 0.3 % (0.00-10.9); Hematocrit 40.4 VOL% (42.0-52.0); Hemoglobin 12.8 GM/DL (14.0-18.0); Immature Granulocytes % 0.6 %; Immature Granulocytes Absolute 0.06 #; Lymphocytes # 1.2 10*3/uL (1.4-4.0); Lymphocytes % 10.6 % (21.2-54.2); Mean Corpuscular HGB Conc 31.7 GM/DL (32-36); Mean Corpuscular Hemoglobin 30 PG (27-34); Mean Corpuscular Volume 93.7 FL (87-102); Mean Platelet Volume 10.4 FL (9.6-12.0); Monocytes # 0.8 10*3/uL (0.11-0.8); Neutrophils # 8.9 10*3/uL (1.4-7.4); Neutrophils % 81.3 % (38.7-73.9); Platelet Count 215 T/CUMM (130-400); Red Blood Count 4.31 MC/CUMM (3.8-5.5); Red Cell Distribution Width 14.1 % (9.3-17.3); White Blood Count 10.9 T/CUMM (4-12)
[2017-09-09 07:13] LABS: Albumin 2.6 G/DL (3.4-5.0); Bilirubin,Total 1.7 MG/DL (0.2-1.0); Calcium 8.4 MG/DL (8.5-10.1); Osmolality,Calculated 296.4 MOS/KG (273-304); Potassium 3.2 MMOL/L (3.5-5.1); Total Protein 5.7 G/DL (6.4-8.3)
[2017-09-09] MEDS ORDERED: FUROSEMIDE 40 MG/4 ML VIAL IV SCH (08:00)
[2017-09-09] MEDS ORDERED: POTASSIUM CHLORIDE 20 MEQ TABLET PO ONE (08:01)
[2017-09-09] MEDS ORDERED: POTASSIUM CHLORIDE RIDER 10 MEQ in PREMIX 1 EACH IV PRN (08:02)
[2017-09-09] MEDS ORDERED: ALBUTEROL 2.5 MG/3 ML NEB RESP TX PRN (09:02)
[2017-09-09] MEDS ORDERED: NITROGLYCERIN SL 0.4 MG TABLET SL PRN (09:02)
[2017-09-09] MEDS: TICAGRELOR 90 MG TABLET PO SCH ×2 (09:58→21:21)
[2017-09-09] MEDS: ENOXAPARIN 40 MG/0.4 ML SYRINGE SUBCUT SCH ×2 (09:58→10:03)
[2017-09-09] MEDS: PANTOPRAZOLE 40 MG TABLET PO SCH (09:58)
[2017-09-09] MEDS: INSULIN REGULAR 100 UNIT/ML SUBCUT SCH ×4 (09:59→21:22)
[2017-09-09] MEDS: FUROSEMIDE 40 MG/4 ML VIAL IV SCH ×2 (10:50→16:36)
[2017-09-09] MEDS: METOPROLOL TARTRATE 25 MG TABLET PO SCH ×2 (10:50→21:21)
[2017-09-09] MEDS ORDERED: PANTOPRAZOLE 40 MG TABLET PO PRN (17:02)
[2017-09-09] MEDS: metOLazone 2.5 MG TABLET PO SCH (17:37)
[2017-09-09] MEDS: SPIRONOLACTONE 25 MG TABLET PO SCH (21:21)
[2017-09-09] MEDS: ATORVASTATIN 40 MG TABLET PO SCH (21:21)
[2017-09-09] MEDS: INSULIN GLARGINE 100 UNIT/ML SUBCUT SCH (21:22)
[2017-09-10 05:04] LABS: Basophils % 0.3 % (0.0-0.8); Eosinophils % 0.2 % (0.00-10.9); Hematocrit 40.4 VOL% (42.0-52.0); Hemoglobin 12.9 GM/DL (14.0-18.0); Immature Granulocytes % 0.4 %; Immature Granulocytes Absolute 0.04 #; Lymphocytes # 1.4 10*3/uL (1.4-4.0); Lymphocytes % 15.2 % (21.2-54.2); Mean Corpuscular HGB Conc 31.9 GM/DL (32-36); Mean Corpuscular Hemoglobin 30 PG (27-34); Mean Corpuscular Volume 92.2 FL (87-102); Mean Platelet Volume 10.8 FL (9.6-12.0); Monocytes # 0.7 10*3/uL (0.11-0.8); Monocytes % 7.8 % (1.7-12.7); Neutrophils # 7.2 10*3/uL (1.4-7.4); Neutrophils % 76.1 % (38.7-73.9); Platelet Count 209 T/CUMM (130-400); Red Blood Count 4.38 MC/CUMM (3.8-5.5); Red Cell Distribution Width 14.3 % (9.3-17.3); White Blood Count 9.4 T/CUMM (4-12)
[2017-09-10 05:36] LABS: Potassium 3.5 MMOL/L (3.5-5.1)
[2017-09-10] MEDS ORDERED: Liraglutide [Victoza 2-Pak] 1.8 MG SUBCUT SCH (09:00)
[2017-09-10] MEDS: PSEUDOEPHEDRINE 30 MG TABLET PO SCH ×3 (10:08→21:18)
[2017-09-10] MEDS: ISOSORBIDE MONONITRATE 30 MG TABLET PO SCH (10:09)
[2017-09-10] MEDS: GABAPENTIN 100 MG CAPSULE PO SCH (10:09)
[2017-09-10] MEDS: PANTOPRAZOLE 40 MG TABLET PO SCH (10:09)
[2017-09-10] MEDS: metOLazone 2.5 MG TABLET PO SCH (10:09)
[2017-09-10] MEDS: ASPIRIN EC 81 MG TABLET PO SCH (10:09)
[2017-09-10] MEDS: TICAGRELOR 90 MG TABLET PO SCH ×2 (10:09→21:19)
[2017-09-10] MEDS: MONTELUKAST 10 MG TABLET PO SCH (10:09)
[2017-09-10] MEDS: SPIRONOLACTONE 25 MG TABLET PO SCH ×2 (10:09→21:19)
[2017-09-10] MEDS: CETIRIZINE 10 MG TABLET PO SCH (10:10)
[2017-09-10] MEDS: METOPROLOL TARTRATE 25 MG TABLET PO SCH ×2 (10:10→21:19)
[2017-09-10] MEDS: MAGNESIUM SULF RIDER 2 GM in PREMIX 1 EACH IV PRN (10:10)
[2017-09-10] MEDS: INSULIN REGULAR 100 UNIT/ML SUBCUT SCH ×4 (10:11→21:19)
[2017-09-10] MEDS: FUROSEMIDE 40 MG/4 ML VIAL IV SCH ×2 (10:11→16:16)
[2017-09-10] MEDS: ENOXAPARIN 40 MG/0.4 ML SYRINGE SUBCUT SCH (10:11)
[2017-09-10] MEDS: INSULIN GLARGINE 100 UNIT/ML SUBCUT SCH ×2 (10:22→21:19)
[2017-09-10] MEDS ORDERED: POTASSIUM CHLORIDE 20 MEQ TABLET PO ONE (11:45)
[2017-09-10] MEDS: MAGNESIUM OXIDE 400 MG TABLET PO SCH (21:19)
[2017-09-10] MEDS: ATORVASTATIN 40 MG TABLET PO SCH (21:19)
[2017-09-11] MEDS: PSEUDOEPHEDRINE 30 MG TABLET PO SCH ×4 (04:11→22:02)
[2017-09-11 05:44] LABS: Basophils % 0.4 % (0.0-0.8); Eosinophils # 0.1 10*3/uL (0.0-0.87); Eosinophils % 0.8 % (0.00-10.9); Hematocrit 41.1 VOL% (42.0-52.0); Hemoglobin 12.9 GM/DL (14.0-18.0); Immature Granulocytes % 0.5 %; Immature Granulocytes Absolute 0.04 #; Lymphocytes # 1.1 10*3/uL (1.4-4.0); Lymphocytes % 13.5 % (21.2-54.2); Mean Corpuscular HGB Conc 31.4 GM/DL (32-36); Mean Corpuscular Hemoglobin 30 PG (27-34); Mean Corpuscular Volume 94.5 FL (87-102); Monocytes # 0.7 10*3/uL (0.11-0.8); Monocytes % 7.9 % (1.7-12.7); Neutrophils # 6.4 10*3/uL (1.4-7.4); Neutrophils % 76.9 % (38.7-73.9); Platelet Count 183 T/CUMM (130-400); Red Blood Count 4.35 MC/CUMM (3.8-5.5); Red Cell Distribution Width 14.3 % (9.3-17.3); White Blood Count 8.4 T/CUMM (4-12)
[2017-09-11 06:12] LABS: Calcium 8.4 MG/DL (8.5-10.1); Osmolality,Calculated 287.5 MOS/KG (273-304); Potassium 4.3 MMOL/L (3.5-5.1)
[2017-09-11] MEDS: FUROSEMIDE 40 MG/4 ML VIAL IV SCH ×2 (09:03→17:12)
[2017-09-11] MEDS: ENOXAPARIN 40 MG/0.4 ML SYRINGE SUBCUT SCH (09:04)
[2017-09-11] MEDS: INSULIN REGULAR 100 UNIT/ML SUBCUT SCH ×4 (09:04→22:03)
[2017-09-11] MEDS: INSULIN GLARGINE 100 UNIT/ML SUBCUT SCH ×2 (09:05→22:03)
[2017-09-11] MEDS: ISOSORBIDE MONONITRATE 30 MG TABLET PO SCH (09:06)
[2017-09-11] MEDS: metOLazone 2.5 MG TABLET PO SCH (09:06)
[2017-09-11] MEDS: CETIRIZINE 10 MG TABLET PO SCH (09:06)
[2017-09-11] MEDS: METOPROLOL TARTRATE 25 MG TABLET PO SCH ×2 (09:07→22:02)
[2017-09-11] MEDS: SPIRONOLACTONE 25 MG TABLET PO SCH ×2 (09:07→22:02)
[2017-09-11] MEDS: TICAGRELOR 90 MG TABLET PO SCH ×2 (09:07→22:02)
[2017-09-11] MEDS: GABAPENTIN 100 MG CAPSULE PO SCH (09:07)
[2017-09-11] MEDS: MONTELUKAST 10 MG TABLET PO SCH (09:07)
[2017-09-11] MEDS: MAGNESIUM OXIDE 400 MG TABLET PO SCH ×2 (09:07→22:02)
[2017-09-11] MEDS: PANTOPRAZOLE 40 MG TABLET PO SCH (09:08)
[2017-09-11] MEDS: ASPIRIN EC 81 MG TABLET PO SCH (09:08)
[2017-09-11] MEDS: ATORVASTATIN 40 MG TABLET PO SCH (22:03)
[2017-09-12] MEDS: PSEUDOEPHEDRINE 30 MG TABLET PO SCH ×4 (04:19→21:50)
[2017-09-12 05:40] LABS: Calcium 8.8 MG/DL (8.5-10.1); Osmolality,Calculated 282.4 MOS/KG (273-304); Potassium 3.4 MMOL/L (3.5-5.1)
[2017-09-12] MEDS: MAGNESIUM SULF RIDER 2 GM in PREMIX 1 EACH IV PRN (07:48)
[2017-09-12] MEDS: INSULIN REGULAR 100 UNIT/ML SUBCUT SCH ×4 (08:41→22:22)
[2017-09-12] MEDS: FUROSEMIDE 40 MG/4 ML VIAL IV SCH (08:43)
[2017-09-12] MEDS: ENOXAPARIN 40 MG/0.4 ML SYRINGE SUBCUT SCH (09:27)
[2017-09-12] MEDS: INSULIN GLARGINE 100 UNIT/ML SUBCUT SCH ×2 (09:27→21:49)
[2017-09-12] MEDS: ISOSORBIDE MONONITRATE 30 MG TABLET PO SCH (09:29)
[2017-09-12] MEDS: MONTELUKAST 10 MG TABLET PO SCH (09:30)
[2017-09-12] MEDS: ASPIRIN EC 81 MG TABLET PO SCH (09:30)
[2017-09-12] MEDS: TICAGRELOR 90 MG TABLET PO SCH ×2 (09:30→21:50)
[2017-09-12] MEDS: GABAPENTIN 100 MG CAPSULE PO SCH (09:30)
[2017-09-12] MEDS: CETIRIZINE 10 MG TABLET PO SCH (09:30)
[2017-09-12] MEDS: MAGNESIUM OXIDE 400 MG TABLET PO SCH ×2 (09:30→21:50)
[2017-09-12] MEDS: SPIRONOLACTONE 25 MG TABLET PO SCH ×2 (09:31→21:49)
[2017-09-12] MEDS: METOPROLOL TARTRATE 25 MG TABLET PO SCH ×2 (09:31→21:50)
[2017-09-12] MEDS: metOLazone 2.5 MG TABLET PO SCH (09:31)
[2017-09-12] MEDS: PANTOPRAZOLE 40 MG TABLET PO SCH (09:31)
[2017-09-12] MEDS: POTASSIUM CHLORIDE 20 MEQ TABLET PO PRN ×3 (11:19→16:49)
[2017-09-12] MEDS: FUROSEMIDE 80 MG TABLET PO SCH (16:49)
[2017-09-12] MEDS: ATORVASTATIN 40 MG TABLET PO SCH (21:50)
[2017-09-13] MEDS: PSEUDOEPHEDRINE 30 MG TABLET PO SCH ×3 (03:35→09:03)
[2017-09-13 05:56] LABS: Calcium 8.7 MG/DL (8.5-10.1); Osmolality,Calculated 282.4 MOS/KG (273-304); Potassium 3.6 MMOL/L (3.5-5.1)
[2017-09-13] MEDS: INSULIN REGULAR 100 UNIT/ML SUBCUT SCH (07:41)
[2017-09-13 08:24] VITALS: BP 113/70
[2017-09-13] MEDS: INSULIN GLARGINE 100 UNIT/ML SUBCUT SCH (08:58)
[2017-09-13] MEDS: ENOXAPARIN 40 MG/0.4 ML SYRINGE SUBCUT SCH (08:58)
[2017-09-13] MEDS: MAGNESIUM OXIDE 400 MG TABLET PO SCH (08:59)
[2017-09-13] MEDS: GABAPENTIN 100 MG CAPSULE PO SCH (08:59)
[2017-09-13] MEDS: MONTELUKAST 10 MG TABLET PO SCH ×2 (08:59→09:04)
[2017-09-13] MEDS: PANTOPRAZOLE 40 MG TABLET PO SCH (09:00)
[2017-09-13] MEDS: metOLazone 2.5 MG TABLET PO SCH (09:00)
[2017-09-13] MEDS: CETIRIZINE 10 MG TABLET PO SCH (09:00)
[2017-09-13] MEDS: ASPIRIN EC 81 MG TABLET PO SCH (09:00)
[2017-09-13] MEDS: TICAGRELOR 90 MG TABLET PO SCH (09:00)
[2017-09-13] MEDS: SPIRONOLACTONE 25 MG TABLET PO SCH (09:00)
[2017-09-13] MEDS: FUROSEMIDE 80 MG TABLET PO SCH (09:00)
[2017-09-13] MEDS: METOPROLOL TARTRATE 25 MG TABLET PO SCH (09:00)
[2017-09-13] MEDS ORDERED: POTASSIUM CHLORIDE 20 MEQ TABLET PO ONE (10:35)
== END 2017-09-13 13:05 | disposition home or self-care (01) | DRG 291 ==
LOC: N.ED 21:20 → N.EDINP 09-09 01:29 → N.TELES 09-09 01:55
PROVIDERS: ADMIT Family Medicine; ATTEND Family Medicine